=== PATIENT | female | born 1950 | race Caucasian/White ===

== ENCOUNTER 2017-07-26 06:19 | Day surgery (SDC) | payer MEDICARE, BC ==
[2017-07-26] MEDS ORDERED: Lactated Ringers 1,000 ML IV SCH (07:00)
[2017-07-26] MEDS ORDERED: Propofol 200 MG/20 ML SDV ONE (07:26)
[2017-07-26] MEDS ORDERED: fentaNYL 100 MCG/2 ML SDV ONE (07:26)
[2017-07-26] MEDS ORDERED: Midazolam 1 MG/ML 2 ML SDV ONE (07:26)
[2017-07-26] MEDS ORDERED: Ampicillin 2 GM in Sodium Chloride 0.9% 100 ML IV ONE (07:27)
[2017-07-26 09:59] VITALS: BP 145/80
--- NOTE | 2017-07-26 10:44 | OR ---
DATE OF PROCEDURE: 07/26/2017 PREOPERATIVE DIAGNOSIS: History of colon polyps. POSTOPERATIVE DIAGNOSES: Diverticulosis, small transverse colon polyp, history of colon polyps. PROCEDURE: Colonoscopy to the cecum with biopsy resection of small transverse colon polyp. SURGEON: Steven Travis M.D. TREE PULLER: Marixa Griffin MS-3. ANESTHESIA: IV anesthesia with monitored anesthesia care. INDICATION: This 66-year-old white female is referred for a colonoscopy because of a history of colon polyps. Her last colonoscopic exam was done 6 years ago, she says, and was unremarkable. I counseled her for the procedure including risks and alternatives, and she gave her informed consent to proceed. DESCRIPTION OF PROCEDURE: The patient was placed in the left lateral decubitus position. IV anesthesia was administered by the Anesthesia Service. Time-out was held. A rectal exam was performed, which was unremarkable. The flexible video Olympus colonoscope was introduced through her anus, up her rectum, and out her colon all the way to the cecum. En route, in the transverse colon, we saw a small polyp, which was removed with a single bite of the biopsy forceps. Once the cecum was reached, the scope was slowly withdrawn, examining the mucosa throughout. No additional mucosal abnormalities were noted until we reached the left colon. Here, and in the sigmoid colon, we saw a few scattered diverticula. There was no bleeding or inflammation associated with them. The scope was retroflexed in the rectum with the distal rectum appearing unremarkable. The scope was straightened and removed. She tolerated the procedure well. Steven Travis MD /[id number]
== END 2017-07-26 10:01 | disposition home or self-care (01) ==
LOC: JP.SDS 06:19
PROVIDERS: ATTEND Surgery
DX: Z12.11 Encounter for screening for malignant neoplasm of colon (principal); K51.40 Inflammatory polyps of colon without complications; K57.30 Diverticulosis of large intestine without perforation or abscess without bleeding; K21.9 Gastro-esophageal reflux disease without esophagitis; E11.9 Type 2 diabetes mellitus without complications; E78.5 Hyperlipidemia, unspecified; Z86.010 Personal history of colon polyps; Z88.1 Allergy status to other antibiotic agents; Z88.8 Allergy status to other drugs, medicaments and biological substances; Z91.018 Allergy to other foods
CPT/HCPCS: 45380; J0290; J2250; J2704; J3010; J7030; J7120

== ENCOUNTER 2024-07-04 06:55 | Day surgery (SDC) | payer MEDICARE ==
[2024-07-04] MEDS ORDERED: fentaNYL 100 MCG/2 ML SDV ONE (07:32)
[2024-07-04] MEDS ORDERED: Propofol 200 MG/20 ML SDV ONE (07:32)
[2024-07-04] MEDS: Lactated Ringers 1,000 ML IV SCH (08:06)
[2024-07-04 09:57] VITALS: BP 180/86; PULSE 69
== END 2024-07-04 10:05 | disposition home or self-care (01) ==
LOC: JP.SDS 06:55
PROVIDERS: ATTEND Surgery
DX: Z12.11 Encounter for screening for malignant neoplasm of colon (principal); D12.8 Benign neoplasm of rectum; K57.30 Diverticulosis of large intestine without perforation or abscess without bleeding; I10 Essential (primary) hypertension; K21.9 Gastro-esophageal reflux disease without esophagitis; E11.9 Type 2 diabetes mellitus without complications
CPT/HCPCS: 45380; 88305; J2704; J3010; J7120; 00811-QZ